=== PATIENT | female | born 1940 | race Caucasian/White ===

== ENCOUNTER 2019-01-08 13:09 | Outpatient (CLI) | payer OTHER, SELFPAY ==
[2019-01-08 14:19] LABS: TSH (W/Ref FT4) 1.66 uIU/mL (0.358-3.74)
== END 2019-01-08 13:29 ==
PROVIDERS: PCP Family Medicine
DX: E03.9 Hypothyroidism, unspecified (principal)
CPT/HCPCS: 36415; 84443

== ENCOUNTER 2022-01-14 13:01 | Emergency (ER) | payer OTHER, SELFPAY ==
[2022-01-14 13:15] VITALS: BP 158/96; PULSE 83; RESP 18; TEMP 36.8; O2SAT 96
--- NOTE | 2022-01-14 13:32 | ED.GENADUL_ITS ---
Discharge Plan Disposition Patient Disposition: HOME Condition: Improving Discharge Details Clinical Impression: Bilateral lower abdominal pain [facility] Jose Renee Home Meds and New Rx's Prescriptions: New cephalexin 500 mg capsule 500 mg PO TID 5 Days Qty: 15 0RF No Action levothyroxine [Synthroid] 150 MCG tablet 137 mcg PO DAILY Centrum Silver 1 EACH tablet 1 ea PO DAILY pravastatin 20 MG tablet 20 mg PO DAILY coenzyme Q10 [Co Q-10] 200 MG capsule 200 mg PO DAILY Vitamin D3 4,000 UNIT capsule 4,000 unit PO DAILY aspirin 81 MG tablet,chewable 81 mg PO DAILY Qty: 30 0RF telmisartan 40 mg tablet 1 tab PO QHS Discharge Instructions Instructions: Abdominal Pain (ED) Additional Instructions: Home to rest today. Continue small, frequent sips of fluids so that she maintain hydration. As we discussed we will treat you with a course of Keflex, this will begin tonight and a tablet again for tomorrow morning followed by a prescription for 3 tabs per day for 5 days. Please continue your routine medications. Follow-up with [facility] if not improving in 5 to 7 days time. Return to the ER for any acute concerns. Medical Decision Making This is a delightful 81-year-old female who spends her [place]. She had 2 days of left lower quadrant achy and dull abdominal pain. She had spotting bright red blood after wiping and normal bowel movement this morning. She has not had a fever or vomiting. She was initially seen at an outlying urgent care and referred to the ER for imaging. That patient is afebrile and well-appearing, she does demonstrate some discrete left lower quadrant abdominal tenderness. Differential diagnoses include diverticulitis, obstipation.. Patient IV access established, labs obtained, referred for imaging. Patient's labs are reassuring with a white count of 8, hematocrit 46, platelets 277. Chemistries essentially unremarkable. CT images: Do not reveal acute pathology. Note of trace gas at cervix. Discussed with patient. She recently had intercourse with her and following this her symptoms began. Urinalysis obtained: There are mixed cells. Patient notes increased frequency of urination and burning this afternoon. I do feel is reasonable to initiate presumptive treatment of urinary tract infection with Keflex. Will continue conservative management and observation at home. She will return for acute worsening or any other concerns. Lab Data Lab results reviewed: Yes I reviewed the patient's lab results. Labs: Laboratory Results - last 24 hr 01/14/22 01/14/22 13:40 13:40 WBC 8.38 RBC 5.03 Hgb 15.5 Hct 46.8 H MCV 93 MCH 30.8 MCHC 33.1 RDW 12.1 Plt Count 277 MPV 9.1 Immature Gran % 0.1 Neutrophils % 74.3 Lymphocytes % 19.2 Monocytes % 5.7 Eosinophils % 0.5 Basophils % 0.2 Nucleated RBC % 0.0 Absolute Neutrophils 6.22 Absolute Lymphocytes 1.61 Absolute Monocytes 0.48 Absolute Eosinophils 0.04 Absolute Basophils 0.02 Sodium 142 Potassium 4.1 Chloride 105 Carbon Dioxide 26.5 Anion Gap 10.5 BUN 18 Creatinine 1.1 H Estimated GFR/1.73 m2 47.79 Glucose 112 H Calcium 9.2 Total Bilirubin 0.5 AST 15 ALT 23 Alkaline Phosphatase 85 Total Protein 7.7 Albumin 4.2 HPI General Mode of arrival: ambulatory . Date/Time Provider Initiated Documentation: 01/14/22 13:28 . Limitations to Documentation: no limitations . Information obtained by: patient . History of Present Illness 81 year old F presents to the emergency department with the chief complaint of Lower abdominal pain 2 days, described as mild and moderate, Quality is described as dull and constant, and is localized to the abdomen, left and right. Patient reports no radiation. Patient started experiencing this hour(s) and it has been constant. No relieving factors improve symptom(s), No exacerbating factors reported . Patient did receive the following treatments prior to arrival, none Related Data Home Medications Medication Instructions Recorded Confirmed levothyroxine 150 mcg tablet 137 mcg PO DAILY 02/27/14 04/20/17 (Synthroid) [id number] acid 0.4 1 ea PO DAILY 04/14/14 01/14/22 mg-lycopene 300 mcg-lutein 250 mcg tablet (Centrum Silver) cholecalciferol (vitamin D3) 100 4,000 unit PO DAILY 04/20/17 01/14/22 mcg (4,000 unit) capsule (Vitamin D3) coenzyme Q10 200 mg capsule (Co 200 mg PO DAILY 04/20/17 01/14/22 Q-10) pravastatin 20 mg tablet 20 mg PO DAILY 04/20/17 04/20/17 aspirin 81 mg chewable tablet 81 mg PO DAILY ##30 04/21/17 cephalexin 500 mg capsule 500 mg PO TID 5 days #15 caps 01/14/22 telmisartan 40 mg tablet 1 tab PO QHS 01/14/22 01/14/22 Previous Rx's Medication Instructions Recorded aspirin 81 mg chewable tablet 81 mg PO DAILY ##30 04/21/17 cephalexin 500 mg capsule 500 mg PO TID 5 days #15 caps 01/14/22 Allergies Allergy/AdvReac Type Severity Reaction Status Date / Time Penicillins Allergy Rash Unverified 01/14/22 13:20 General Stated Complaint: Abd Prob MERLIN: 4 PFSH All Active Problems (Updated 01/14/22 @ 16:39 by Jose Renee MD) Bilateral lower abdominal pain (Acute) Social History Smoking/Tobacco Use Status: Never Smoking risk assessment performed?: Yes Alcohol Intake: current Alcohol Intake frequency: a few times a month Drug use: Never Substance use type: does not use Do you feel safe at home: Yes Do you feel safe in your relationship?: Yes Exam Narrative Exam Narrative: GEN: awake, alert, oriented 3. Pleasant, well groomed, interactive. HEAD: Normocephalic, atraumatic EYES: PERRL, EOMI NECK: Full ROM, no POWER, no menigismus CHEST/RESP: Nontender, clear to auscultation bilateral, no wheeze/rhonchi/rales CARDIOVASCULAR: RRR, no murmur, rub leon. 2+ Rad pulse bilateral ABDOMEN: Soft, tender in the left lower quadrant to deep palpation, no significant rebound appreciated, no mass. +Bowel sounds EXT: Full ROM, no edema, no rash Neuro: Grossly normal neurologic exam, conversant, interactive. Psych: Speech fluent, thoughts congruent, affect normal Course Vital Signs Vital signs: Vital Signs Temperature 36.8 C 01/14/22 13:15 Pulse 83 01/14/22 13:15 Respiratory Rate 18 01/14/22 13:15 Blood Pressure 158/96 H 01/14/22 13:15 Pulse Oximetry 96 01/14/22 13:15 Temperature 36.8 C 01/14/22 13:15 Temperature Source Temporal Artery Scan 01/14/22 13:15 Pulse 83 06/17/22 13:15 Respiratory Rate 18 01/14/22 13:15 Respiratory Effort Non-Labored 01/14/22 13:23 Blood Pressure 158/96 H 01/14/22 13:15 Blood Pressure Position Sitting 01/14/22 13:15 Pulse Oximetry 96 01/14/22 13:15 Oxygen Delivery Method Room Air 01/14/22 13:15 Oxygen Flow Rate 0 01/14/22 13:15 PAWSS Have you Been Recently Intoxicated or Drunk Within the Last 30 days?: No Have you Ever Experienced Previous Episodes of Alcohol Withdrawal?: No Have you ever Experienced Withdrawal Seizures?: No Have you ever Experienced Delirium Tremens(DT)s?: No Have you ever undergone Alcohol Rehabilitation Treatment (i.e, inpt ot outpatient treatment programs)?: No Have you ever Experienced Blackouts?: No Have you ever Combined Alcohol with other Downers within the last 90 days?: No Have you ever Combined Alcohol with any other Substance of Abuse during the last 90 days?: No Positive Blood Alcohol level on Presentation? [PCS.BAL]: No Evidence of Increased Autonomic Activity (i.e. HR>120, tremor, sweating, a gitation, nausea)?: No Result: 0
[2022-01-14 13:46] LABS: Abs Immature Grans 0.01 10^3/uL (0.0-0.06); Absolute Basophil Count 0.02 10^3/uL (0.0-0.2); Absolute Eosinophil Count 0.04 10^3/uL (0.0-0.7); Absolute Lymphocyte Count 1.61 10^3/uL (1.2-3.4); Absolute Monocyte Count 0.48 10^3/uL (0.1-0.8); Absolute Neutrophil Count 6.22 10^3/uL (1.2-6.7); Basophils % 0.2; Eosinophils % 0.5; HCT 46.8 % (36.0-46.0); HGB 15.5 g/dL (11.2-15.7); Immature Grans % 0.1; Lymphocytes % 19.2; MCH 30.8 pg (27.0-33.0); MCHC 33.1 % (32.0-36.0); MCV 93 fL (80-95); MPV 9.1 fL (8.0-11.0); Monocytes % 5.7; Neutrophils % 74.3; Platelet Count 277 10^3/uL (130-400); RBC 5.03 10^6/uL (3.93-5.22); RDW 12.1 % (11.7-14.6); RDW-SD 41.4 fL; WBC 8.38 10^3/uL (4.4-10.8)
--- NOTE | 2022-01-14 14:00 | DI.CT_ITS ---
Exam(s) CT ABDOMEN PELVIS WO EXAM: CT ABDOMEN PELVIS WO INDICATION: LLQ abd pain, PO contrast please. COMPARISON: No exams were available for comparison TECHNIQUE: FINDINGS: CT examination of the abdomen and pelvis was performed with oral contrast only There are severe degenerative changes of. No acute fracture.. Images obtained through the lung bases are unremarkable. The liver is unremarkable in appearance except for couple of small low-attenuation lesions, the large st about 11 millimeters in diameter, which are likely represents small cysts or hemangiomas.. Gallbladder and bile ducts are CT normal. Pancreas appears normal. Spleen is unremarkable in appearance. Adrenals appear normal. The kidneys are unremarkable with no evidence of hydronephrosis, nephrolithiasis, or renal mass.. Ur inary bladder unremarkable. Abdominal aorta is of normal diameter and no major vascular abnormality is seen. No abdominal wall hernia. No abdominal or pelvic adenopathy. There is a small quantity of gas at the cervix, question recent vaginal examination, please correlate clinically.. Appendix is normal. No evidence of diverticulitis or bowel obstruction. IMPRESSION: Negative CT examination of the abdomen and pelvis. RADIATION DOSE DELIVERED: 890.76mGy.cm Total DLP 890.76mGy.cm Total DLP !Error CTDIvol RADIATION OPTIMIZATION: All CT scans at this facility use at least one of these dose optimization te chniques: automated exposure control; mA and/or kV adjustment per patient size (includes targeted exa ms where dose is matched to clinical indication); or iterative reconstruction.
[2022-01-14 14:01] LABS: ALT 23 U/L (14-59); AST 15 U/L (15-37); Albumin 4.2 g/dL (3.4-5.0); Alkaline Phosphatase 85 U/L (46-116); Anion Gap 10.5 mmol/L (3-11); BUN 18 mg/dL (7-18); Bilirubin, Total 0.5 mg/dL (0.2-1.0); CO2 26.5 mmol/L (21.0-32.0); CREATININE 1.1 mg/dL (0.55-1.02); Calcium 9.2 mg/dL (8.5-10.1); Chloride 105 mmol/L (98-107); Estimated GFR 47.79 (mL/min/1.73m2); Glucose 112 mg/dL (74-106); Potassium 4.1 mmol/L (3.5-5.1); Sodium 142 mmol/L (136-145); Total Protein 7.7 g/dL (6.4-8.2)
[2022-01-14] MEDS: Normal Saline 1,000 ML 125 ML IV (14:12)
[2022-01-14] MEDS: Breeza Beverage 473 ML BTL PO (15:54)
[2022-01-14 16:25] LABS: Bilirubin Negative (Negative); Blood Small (Negative); Clarity Clear (Clear); Glucose Negative (Negative); Ketones Negative (Negative); Leukocyte Esterase Negative (Negative); Nitrite Negative (Negative); Specific Gravity <= 1.005 (1.005-1.025); Urobilinogen 0.2 EU/dL (Up TO 0.2); pH 5.5 (5-8)
[2022-01-14 16:32] LABS: Bacteria Negative HPF (Negative); C & S Indicated? No; Casts Negative LPF (Negative); Crystals Negative HPF (Negative); Epithelial Cells Few HPF (Negative); Mucus Negative (Negative)
[2022-01-14] MEDS: Cephalexin 500 MG CAP, 2 CAPS/BTL PO (16:51)
== END 2022-01-14 16:50 | disposition home or self-care (01) ==
PROVIDERS: Emergency Provider Emergency Medicine
DX: R10.32 Left lower quadrant pain (principal); R10.31 Right lower quadrant pain
CPT/HCPCS: 36415; 80053; 99284; 74176; 81003; 81015; 85025; 99283; J3490

== ENCOUNTER 2023-03-12 09:32 | Emergency (ER) | payer OTHER, SELFPAY ==
--- NOTE | 2023-03-12 09:30 | RT.EKG_ITS ---
APPROVED REPORT Exam: Resting ECG Reason for Exam: elevated heart rate Patient Location: E HR:79 bpm ECG Measurements Heart Rate 79 AXIS NM 184 P 26 QRSd 95 QRS 14 QT 367 T 25 QTc 421 Conclusion Sinus rhythm...normal P axis, V-rate 60- 99
[2023-03-12 09:36] VITALS: BP 171/94; PULSE 83; RESP 18; TEMP 36.8; O2SAT 98
--- NOTE | 2023-03-12 10:20 | ED.GENADUL_ITS ---
Discharge Plan Disposition Patient Disposition: Home Discharge Details Clinical Impression: Anxiety about health, Tachycardia, paroxysmal Primary Care Provider: [facility] ED Provider: Emmett Dunn Home Meds and New Rx's Prescriptions: Continued levothyroxine [Synthroid] 150 MCG tablet 137 mcg PO DAILY Centrum Silver 1 EACH tablet 1 ea PO DAILY pravastatin 20 MG tablet 20 mg PO DAILY coenzyme Q10 [Co Q-10] 200 MG capsule 200 mg PO DAILY Vitamin D3 4,000 UNIT capsule 4,000 unit PO DAILY aspirin 81 MG tablet,chewable 81 mg PO DAILY Qty: 30 0RF telmisartan 40 mg tablet 1 tab PO QHS Discharge Instructions Instructions: Anxiety (ED) Additional Instructions: At this time I feel that your elevated heart rate was more likely due to anxiety. It is recommend that you continue to monitor symptoms and if you become symptomatic or have further concerns that you return to the emergency department for reassessment and further work-up. Please follow-up with your primary care provider for rechecks of your blood pressure and heart rate as needed. Referrals: Primary Care Provider [Outside] (As needed for reassessment) Discharge Data Discharge Date/Time-TO BE ENTERED AT DEPARTURE: 03/12/23 10:38 Medical Decision Making Patient presenting to the emergency department for chief complaint of rapid heart rate. Patient reports yesterday she was going to flower pick[place] the [place] but there were multiple delays and she was very anxious. She looked down at her phone and checked her heart rate which noted it was very high. Patient states that she did not feel racing heart rate, chest pain, lightheadedness, shortness of breath, or any symptoms but her phone kept saying that she had variable heart rate. She took her blood pressure last night which was also elevated. Again she denies any other associated symptoms. Patient has a history of hypertension, hypothyroidism, hyperlipidemia. Physical exam is unremarkable with no focal findings. EKG was performed and please see physician interpretation for full interpretation of EKG but upon my review patient is in sinus rhythm with no worrisome findings, heart rate is 79. Discussed with patient that I feel that this may have more been anxiety. She states that her phone/watch never alerted her that she was having atrial fibrillation but that she was very anxious. Given normal EKG today and patient denying any symptoms even throughout these events shared decision-making was utilized. Patient was offered full cardiac work-up but after discussion of risks and benefits along with what work-up would entail she decided just to monitor her symptoms at home which I completely agree with as a feel this is more anxiety than actual dysrhythmia. After discussion of diagnosis and plan of care, patient and significant other has no further needs, questions, or concerns and states clear understanding to return to the emergency department for any worsening symptoms. After discussion of diagnosis and plan of care patient has no further needs, questions, or concerns and states clear understanding to return to the emergency department for any worsening symptoms. HPI General Mode of arrival: ambulatory . Date/Time Provider Initiated Documentation: 03/12/23 09:44 . Limitations to Documentation: no limitations . Information obtained by: patient, family and RN notes reviewed . History of Present Illness 82 year old F presents to the emergency department with the chief complaint of Elevated heart rate, Quality is described as other (Denies pain and discomfort), Patient started experiencing this day(s) (1) and it has been intermittent. No relieving factors improve symptom(s), Other factors that worsen symptoms (Anxiety) . Patient notes no other symptoms.. Patient did receive the following treatments prior to arrival, none Related Data Home Medications Medication Instructions Recorded Confirmed levothyroxine 150 mcg tablet 137 mcg PO DAILY 02/27/14 04/20/17 (Synthroid) [id number] acid 0.4 1 ea PO DAILY 04/14/14 01/14/22 mg-lycopene 300 mcg-lutein 250 mcg tablet (Centrum Silver) cholecalciferol (vitamin D3) 100 4,000 unit PO DAILY 04/20/17 01/14/22 mcg (4,000 unit) capsule (Vitamin D3) coenzyme Q10 200 mg capsule (Co 200 mg PO DAILY 04/20/17 01/14/22 Q-10) pravastatin 20 mg tablet 20 mg PO DAILY 04/20/17 04/20/17 aspirin 81 mg chewable tablet 81 mg PO DAILY ##30 04/21/17 telmisartan 40 mg tablet 1 tab PO QHS 01/14/22 01/14/22 Previous Rx's Medication Instructions Recorded aspirin 81 mg chewable tablet 81 mg PO DAILY ##30 04/21/17 Allergies Allergy/AdvReac Type Severity Reaction Status Date / Time Penicillins Allergy Rash Unverified 01/14/22 13:20 General Stated Complaint: Arrhythmia MERLIN: 3 Review of Systems Constitutional Constitutional: Denies chills, Denies fever(s) and Denies malaise Cardiovascular Cardiovascular: Reports as per HPI, Denies chest pain, Denies chest pain with activity, Denies syncope, Reports rapid heart rate, Denies irregular heart rhythm, Denies lightheadedness, Denies radiating jaw, neck or arm pain, Denies palpitations, Denies dyspnea, Denies dyspnea on exertion and Denies slow heart rate Respiratory Respiratory: Denies cough, Denies hemoptysis, Denies dyspnea and Denies dyspnea on exertion Gastrointestinal Gastrointestinal: Denies abdominal pain, Denies nausea and Denies vomiting Neurologic Neurologic: Denies syncope Psychiatric Psychiatric: Denies anxiety Endocrine Endocrine: Denies cold intolerance, Denies heat intolerance and Denies palpitations PFSH All Active Problems (Updated 03/12/23 @ 10:29 by Emmett Dunn NP) Anxiety about health (Acute) Tachycardia, paroxysmal (Acute) Social History Smoking/Tobacco Use Status: Never Smoking risk assessment performed?: Yes Alcohol Intake: current Alcohol Intake frequency: a few times a month Drug use: Never Substance use type: does not use Housing: house Do you feel safe at home: Yes Do you feel safe in your relationship?: Yes Additional Social history: 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 [place] Exam Const General: cooperative, healthy appearing, comfortable, no acute distress, not diaphoretic and not ill appearing Nutritional Appearance: average body habitus Orientation: alert, awake and oriented x3 Limitations: mental status not altered Neck Neck: normal visual inspection, full ROM, trachea midline, supple and no anterior neck swelling Carotids: normal carotid upstroke and no bruits Chest Chest: normal inspection of the chest Resp Effort & Inspection: normal respiratory effort and able to speak in complete sentences Auscultation: clear to auscultation bilaterally Cardio Jugular venous pressure: no JVD Palpation: normal PMI Rate: regular rate Rhythm: regular rhythm Heart Sounds: S1 normal, S2 normal, no click, no gallops, no murmurs and no rubs Bruits: no abdominal aortic bruits and no carotid bruits Pulses: radial pulses present bilaterally 2+ Skin General skin exam: no rashes or lesions noted Neuro General: patient alert, patient awake, patient oriented x3, tone normal and moves all extremities Course Vital Signs Vital signs: Vital Signs Temperature 36.8 C 03/12/23 09:36 Pulse 83 03/12/23 09:36 Respiratory Rate 18 03/12/23 09:36 Blood Pressure 171/94 H 03/12/23 09:36 Pulse Oximetry 98 03/12/23 09:36 Temperature 36.8 C 03/12/23 09:36 Pulse 83 03/12/23 09:36 Respiratory Rate 18 03/12/23 09:36 Respiratory Effort Normal, Non-Labored 03/12/23 09:38 Blood Pressure 171/94 H 03/12/23 09:36 Pulse Oximetry 98 03/12/23 09:36 PAWSS Have you Been Recently Intoxicated or Drunk Within the Last 30 days?: No Have you Ever Experienced Previous Episodes of Alcohol Withdrawal?: No Have you ever Experienced Withdrawal Seizures?: No Have you ever Experienced Delirium Tremens(DT)s?: No Have you ever undergone Alcohol Rehabilitation Treatment (i.e, inpt ot outpatient treatment programs)?: No Have you ever Experienced Blackouts?: No Have you ever Combined Alcohol with other Downers within the last 90 days?: No Have you ever Combined Alcohol with any other Substance of Abuse during the last 90 days?: No Result: 0
[2023-03-12 10:26] VITALS: BP 148/98; PULSE 81; RESP 18; TEMP 36.8; O2SAT 96
== END 2023-03-12 10:38 | disposition home or self-care (01) ==
PROVIDERS: Emergency Provider Nurse Practitioner Family
DX: R00.2 Palpitations (principal); F41.9 Anxiety disorder, unspecified; Z79.82 Long term (current) use of aspirin
CPT/HCPCS: 93005; 99283; 93010